=== PATIENT | male | born 2000 | race Two or more races ===

== ENCOUNTER 2022-01-14 23:01 | Emergency (ER) | payer OTHER ==
[~2022-01-14] VITALS: Ht 170.2 cm; Wt 109.1 kg
[2022-01-14 23:09] VITALS: BP 129/71
[2022-01-14 23:25] LABS: COVID AG,FIA SOURCE NASOPHARYNGEAL
== END 2022-01-15 00:42 | disposition home or self-care (01) ==
LOC: EMS 23:05
DX: J40 Bronchitis, not specified as acute or chronic (principal); Z20.822 Contact with and (suspected) exposure to COVID-19
CPT/HCPCS: 71045; 99284